=== PATIENT | male | born 1955 | race Caucasian/White ===

== ENCOUNTER → 2021-11-19 | Outpatient (CLI) | payer MEDICARE ==
[~2021-11-19] MED LIST: ASPIRIN81 MG PO; FARXIGA PO; LEVEMIR100 UNIT/1 SQ; METFORMIN PO; MIDAZOLAM HCL 2 MG/2 ML VIAL ONE; PRAVASTATIN PO
== END ==
LOC: MRI 11-17 10:42
PROVIDERS: ATTEND Family Medicine
DX: M24.811 Other specific joint derangements of right shoulder, not elsewhere classified (principal)
CPT/HCPCS: 73221; J2250